=== PATIENT | male | born 1985 | race Caucasian/White ===

== ENCOUNTER 2018-08-17 17:18 | Emergency (ER) | payer OTHER ==
[2018-08-17] MEDS ORDERED: Lidocaine 1% INJ* 10 MG/ML 30 ML SDV INJ ONE (17:45)
[2018-08-17] MEDS ORDERED: Tetan/Diph/Pertus SYR(Tdap)* 0.5 ML SYR(BOOSTRIX) use SYR IM ONE (18:00)
[2018-08-17] MEDS ORDERED: Cephalexin CAP* 500 MG PO ONE (18:24)
--- NOTE | 2018-08-17 18:27 | ED ---
Laceration/Wound HPI - HPI Summary HPI Summary: 33-year-old male presents with a right middle finger laceration today. He stuck his hand into a supply service worker when it was on. He is right-handed. He is unsure of his last tetanus is. No medical conditions. No numbness or tingling. has full ROM of his hand. He is an extreme amount of pain. He is not diabetic. He works mowing lawns. - History of Current Complaint Stated Complaint: RT FINGER INJURY Time Seen by Provider: 08/17/18 17:39 Pain Intensity: 10 - Allergy/Home Medications Allergies/Adverse Reactions: Allergies Allergy/AdvReac Type Severity Reaction Status Date / Time No Known Allergies Allergy Verified 08/17/18 17:38 PMH/Surg Hx/FS Hx/Imm Hx Endocrine/Hematology History: Denies: Hx Anticoagulant Therapy Respiratory History: Denies: Hx Asthma Infectious Disease History: No Infectious Disease History: Denies: Traveled Outside the [place] in Last 30 Days - Social History Alcohol Use: None Substance Use Type: Reports: None Smoking Status (MU): Heavy Every Day Tobacco Smoker Review of Systems Negative: Fever Negative: Chest Pain Negative: Shortness Of Breath Positive: Other - laceration right middle finger All Other Systems Reviewed And Are Negative: Yes Physical Exam Triage Information Reviewed: Yes Vital Signs On Initial Exam: Initial Vitals Temp Pulse Resp BP Pulse Ox 97.9 F 63 16 129/86 96 08/17/18 17:36 08/17/18 17:36 08/17/18 17:36 08/17/18 17:36 08/17/18 17:36 Vital Signs Reviewed: Yes Appearance: Positive: Well-Appearing Skin: Positive: Warm, Dry, Other - 1cm by 2cm with real laceration to PIP on dorsum of right middle finger Head/Face: Positive: Normal Head/Face Inspection Eyes: Positive: Normal, Conjunctiva Clear ENT: Positive: Pharynx normal Respiratory/Lung Sounds: Positive: Clear to Auscultation, Breath Sounds Present Cardiovascular: Positive: Normal, RRR Musculoskeletal: Positive: Strength/ROM Intact - right middle finger, Other - capillary refill<2 secs, sensation grossly intact Neurological: Positive: Normal Psychiatric: Positive: Normal Procedures - Laceration/Wound Repair 1 Location: Other - right middle finger Description: Irregular Anesthesia: Local, 1.0% Length, Depth and Shape: 1cm by 2cm with multiple stellate lacerations Irrigated w/ Saline (ccs): 200 Laceration/Wound Explored: no foreign body removed Closure: Single Layer Suture Type: Nylon Number of Sutures: 7 Layer Closure?: No Sterile Dressing Applied?: No - telfa and metal finger splint Diagnostics - Vital Signs Vital Signs Temp Pulse Resp BP Pulse Ox 08/17/18 17:36 97.9 F 63 16 129/86 96 - Laboratory Lab Statement: Any lab studies that have been ordered have been reviewed, and results considered in the medical decision making process. Laceration Repair Course/Dx - Course Course Of Treatment: 33-year-old male presents with a right middle finger laceration today. He stuck his hand into a supply service worker when it was on. He is right-handed. He is unsure of his last tetanus is. No medical conditions. No numbness or tingling. has full ROM of his hand. He is an extreme amount of pain. He is not diabetic. He works mowing lawns. on exam has 2cm by 1cm stellate laceration that cleaned and closed with [address] in metal finger splint. placed on keflex and gave tetanus. patient understand and agrees with plan. - Differential Dx Differental Diagnoses: Abrasion, Avulsion, Laceration - Clinical Impression Provider Diagnoses: Laceration of right middle finger Discharge - Sign-Out/Discharge Documenting (check all that apply): Patient Departure - Discharge Plan Condition: Good Disposition: HOME Prescriptions: Cephalexin CAP* [Keflex CAP*] 500 mg PO BID #9 cap Ibuprofen TAB* [Motrin TAB* 800 MG] 800 mg PO Q8H #16 tab Patient Education Materials: Care For Your Stitches (ED) Forms: *Work Release Referrals: No Primary Care Phys,NOPCP [Primary Care Provider] - Additional Instructions: Take Tylenol or ibuprofen for pain every 6 hours as needed take keflex twice a day for 5 days keep splint on area Keep area clean and dry for 24 hours Return to ED or primary in 8-10 days to have sutures removed Return to ED if develop signs of infection such as fever, spreading redness, or pus. - Billing Disposition and Condition Condition: GOOD Disposition: Home
[2018-08-17 19:12] VITALS: BP 132/86
--- NOTE | 2018-08-18 07:44 | RAD ---
HISTORY: finger in therapy teacher injury COMPARISONS: None VIEWS: 3 , Frontal, lateral, and oblique views of the third digit of the right hand FINDINGS: BONE DENSITY: Normal. BONES: There is no displaced fracture. JOINTS: There is no arthropathy. ALIGNMENT: There is no dislocation. SOFT TISSUES: There is soft tissue irregularity consistent with laceration dorsal to the third PIP joint. OTHER FINDINGS: None. IMPRESSION: NO ACUTE OSSEOUS INJURY. IF SYMPTOMS PERSIST, RECOMMEND REPEAT IMAGING. R0
== END 2018-08-17 19:12 | disposition home or self-care (01) ==
LOC: ED 17:18
DX: S61.212A Laceration without foreign body of right middle finger without damage to nail, initial encounter (principal); W31.89XA Contact with other specified machinery, initial encounter; Y93.H2 Activity, gardening and landscaping; Y92.9 Unspecified place or not applicable; Z23 Encounter for immunization
CPT/HCPCS: 12001; 73140; 90471; 90715; 99282; A9270-GY